=== PATIENT | female | born 1985 | race Caucasian/White ===

== ENCOUNTER → 2017-01-30 | Outpatient (CLI) | payer BC ==
[~2017-01-30] MED LIST: CLC100 PO; FERR325T5 PO; PRENTAB26 PO
[2017-01-30 11:34] LABS: URINE APPEARANCE CLEAR (CLEAR); URINE BILIRUBIN NEG (NEG); URINE COLOR YELLOW; URINE NITRITE NEG (NEG); URINE SPECIFIC GRAVITY 1.012 (1.000-1.030); UROBILINOGEN NEG (NEG)
[2017-01-30 11:46] LABS: MANUAL MICROSCOPIC REQUIRED? NO; REVIEW REQ? NO
== END | disposition home or self-care (01) ==
LOC: C.LABSPEC 10:49
PROVIDERS: ATTEND Obstetrics & Gynecology
DX: Z34.90 Encounter for supervision of normal pregnancy, unspecified, unspecified trimester (principal)

== ENCOUNTER → 2017-02-06 | Outpatient (CLI) | payer BC ==
[2017-02-06 12:32] LABS: BASO % 0.4 %; BASO ABS # 0.04 K/uL (0-0.2); COMPLETE YES; EOS % 0.5 %; HEMATOCRIT 35.5 % (37-47); IG% 0.3 %; LYMPH % 24.5 %; LYMPH ABS # 2.25 K/uL (1.2-3.4); MEAN CELL VOLUME 87.2 fL (80-100); MEAN CORPUSCULAR HEMOGLOBIN 29.7 pg (25-34); MEAN CORPUSCULAR HGB CONC 34.1 g/dl (32-36); MEAN PLATELET VOLUME 10.7 fL (7.4-10.4); MONO % 5.1 %; NEUT % 69.2 %; PLATELET COUNT 265 K/uL (130-400); RED BLOOD COUNT 4.07 M/uL (4.2-5.4); WHITE BLOOD COUNT 9.19 K/uL (4.8-10.8)
[2017-02-08 02:02] LABS: CHLAMYDIA TRACH RNA*** NOT DETECTED (NOT DETECTED); GC (NEIS GONORRHOEAE)RNA** NOT DETECTED (NOT DETECTED)
== END | disposition home or self-care (01) ==
LOC: C.LAB1850 10:01
PROVIDERS: ATTEND Obstetrics & Gynecology
DX: Z34.90 Encounter for supervision of normal pregnancy, unspecified, unspecified trimester (principal)

== ENCOUNTER → 2017-04-02 | Outpatient (CLI) | payer BC ==
[2017-04-02 12:05] LABS: GTGD 50 Grams
[2017-04-03 16:08] LABS: AFP CONCENTRATION 57.6 NG/ML; AFP MULTIPLE OF MEDIAN 1.52; AFPTS GESTATIONAL AGE 16.1 WEEKS; AFPTS INSULIN DEP DIABETIC? NO; AFPTS MATERNAL WT 124 LBS; ALPHA-FETOPROTEIN RACE CAUCASIAN=W; ESTRIOL MULTIPLE OF MEDIAN 1.02; HISTORY OF NTD NO; INHIBIN A 139 PG/ML; INHIBIN A MOM 0.74; REPEAT SAMPLE? NO
== END | disposition home or self-care (01) ==
LOC: C.LAB1850 09:45
PROVIDERS: ATTEND Obstetrics & Gynecology
DX: Z34.90 Encounter for supervision of normal pregnancy, unspecified, unspecified trimester (principal)

== ENCOUNTER → 2017-06-27 | Outpatient (CLI) | payer BC ==
[2017-06-27 12:04] LABS: URINE APPEARANCE CLEAR (CLEAR); URINE BILIRUBIN NEG (NEG); URINE COLOR YELLOW; URINE NITRITE NEG (NEG); URINE PH 7.5 (4.5-7.5); URINE SPECIFIC GRAVITY 1.014 (1.000-1.030); UROBILINOGEN NEG (NEG)
[2017-06-27 12:06] LABS: MANUAL MICROSCOPIC REQUIRED? NO; REVIEW REQ? NO
[2017-06-27 12:10] LABS: HEMATOCRIT 30.8 % (37-47)
[2017-06-27 12:26] LABS: GTGD 50 Grams
== END | disposition home or self-care (01) ==
LOC: C.LAB1850 09:13
PROVIDERS: ATTEND Obstetrics & Gynecology
DX: Z34.82 Encounter for supervision of other normal pregnancy, second trimester (principal); Z3A.00 Weeks of gestation of pregnancy not specified

== ENCOUNTER → 2017-08-20 | Outpatient (CLI) | payer BC | END | disposition home or self-care (01) | LOC: C.LABSPEC 13:51 | PROVIDERS: ATTEND Obstetrics & Gynecology | DX: Z34.83 Encounter for supervision of other normal pregnancy, third trimester (principal) ==

== ENCOUNTER 2017-09-19 14:48 | Inpatient (IN) | payer BC ==
[~2017-09-19] VITALS: Ht 167.6 cm; Wt 66.8 kg
[2017-09-19] MEDS ORDERED: OXYTOCIN 30 UNITS/500ML NSS IV ONE (14:51)
[2017-09-19] MEDS ORDERED: LACTATED RINGER'S 1000ML 1,000 ML IV PRN (15:25)
[2017-09-19] MEDS ORDERED: LACTATED RINGER'S 1000ML 1,000 ML IV SCH (15:25)
[2017-09-19] MEDS ORDERED: HYDROCORTISONE ACETATE 25 MG SUPP PR PRN (15:30)
[2017-09-19] MEDS ORDERED: OXYCODONE/ACETAMINOPHEN 5-325 TAB PO PRN (15:30)
[2017-09-19] MEDS ORDERED: SUPERCREAM 0.870 % 15GM JAR EXT PRN (15:30)
[2017-09-19] MEDS ORDERED: BENZOCAINE 20% AER SPR 82.5 GM CAN EXT PRN (15:30)
[2017-09-19] MEDS ORDERED: LANOLIN OINT EXT PRN (15:30)
[2017-09-19] MEDS ORDERED: ACETAMINOPHEN 325 MG TAB PO PRN (15:30)
[2017-09-19] MEDS ORDERED: OXYTOCIN 30 UNITS/500ML NSS IV PRN (15:30)
--- NOTE | 2017-09-19 15:38 | Vaginal Delivery Summary ---
Vaginal Delivery Summary Upon my arrival I was told the patient was completely dilated. After AROM and 1 push on reexam there was an anterior lip. The heart tones were in the 80s. With the next push attempts made to reduce the lip. The lip did reduce successfully with pushing however the heart tones remained in the 60s. She was readied for vacuum assistance. She was briefly counseled. The heart tones remained in the 60s and therefore the vacuum was applied. The cervix exam was complete/complete/ +2 station. With the first pull of the vacuum the device popped off. The patient pushed spontaneously for the remainder of that contraction. The heart tones remained in the 60s and therefore the vacuum was reapplied. Over one contraction using vacuum assistance the cephalic was delivered. This was followed rapidly by delivery of the shoulders and body. The infant was vigorous and crying at . His mouth and nose were bulb suctioned. Cord was clamped and infant was placed on the maternal abdomen. Cord was then doubly clamped and cut. The placenta was delivered spontaneously and intact 3 vessel cord. Hemostasis achieved with dilute Pitocin and uterine massage. A second-degree perineal laceration was noted and anesthesia was given with 1% lidocaine. The laceration was then repaired in usual fashion using 3-0 Vicryl. The cervix and sulci were intact. Cord blood and cord gases had been obtained. EBL 300 cc's. Mother and baby stable in recovery.
[2017-09-19] MEDS: IBUPROFEN 600 MG TAB PO PRN ×2 (16:02→19:54)
[2017-09-19 16:21] VITALS: Ht 167.6 cm; Wt 66.8 kg
[2017-09-19] MEDS ORDERED: OXYTOCIN INJ 20 UNITS in LACTATED RINGER'S 1000ML 1,000 ML IV SCH (17:00)
[2017-09-19 18:25] VITALS: BP 102/73; PULSE 84; TEMP 36.8
[2017-09-19] MEDS: DOCUSATE SODIUM 100 MG CAP PO SCH (19:53)
[2017-09-19 20:19] VITALS: BP 127/77; PULSE 77; TEMP 36.8
--- NOTE | 2017-09-19 20:38 | Discharge Instructions ---
Discharge Instructions Date of Service Sep 19, 2017. Admission Reason for Admission: R/O Labor Discharge Discharge Diagnosis / Problem: Vaginal Delivery Discharge Goals Goal(s): Routine recovery after delivery Medications Continue Dispensed Medications: supercream, dermaplast, tucks, lansinoh Activity Recommendations Activity Limitations: per Instructions/Follow-up section . Instructions / Follow-Up Instructions / Follow-Up ACTIVITY RECOMMENDATIONS: * Gradual return to full activity over the next 2-3 weeks. * No lifting - nothing heavier than baby over the next 2-3 weeks. * Do not engage in vigorous exercise, sexual activity or sports until cleared by your physician. * Do not drive or operate any motorized equipment until cleared by your physician. * You may shower/bathe daily. MEDICATIONS: For discomfort or pain, you may use Acetaminophen (Tylenol), Ibuprofen (Advil), or Naproxen (Aleve) following the package directions. For constipation you may use Colace following the package directions. BREAST CARE: If you are not breast feeding: * Wear a supportive bra 24 hours a day for one to two weeks. * Avoid stimulating your breasts and nipples as much as possible during the first few weeks after delivery. * When taking a shower, have the warm water hit your back, not breasts. * When your breasts feel full, apply ice packs. Usually three to four times a day helps ease the discomfort. * Take a mild pain medication (Tylenol / Motrin) when you are uncomfortable. If breast feeding: * Use breast milk to lubricate nipples. Lansinoh cream may be used for sore nipples. You do not need to remove cream prior to breast feeding. If using a different brand of cream, check the label for directions regarding removal of cream prior to nursing. * Wear a supportive bra. * If having problems with breasts or breast feeding, call a sales and leasing consultant or your health care provider. EPISIOTOMY CARE: After delivery, if you have an episiotomy (stitches), the following steps will ease discomfort and aid healing. * For the first 24 hours after delivery, place ice packs next to your episiotomy to help reduce swelling. * After the first 24 hour-period, sitz baths, either portable or in the tub, are suggested. A shower with a shower arm sprayed over the episiotomy may be comforting. * Maricruz care should be done after each voiding and bowel movement. Squirt warm water from a plastic bottle over the perineum (region of the body between the anus and urinary opening) and pat dry. * Use Dermoplast to ease discomfort. Shake container. [place] directly over the episiotomy. Place a Tucks on a clean sanitary pad next to your episiotomy. SPECIAL CARE INSTRUCTIONS: When you are discharged from the hospital, it is important for you to follow the instructions listed below: * During the first week at home, you should be able to care for yourself and your baby. In addition, the usual light household activities are encouraged. * Limit your activities to the way you feel. Do not try to clean the house or move furniture. Be sensible. * If you actively engage in sports and have done so up until the time of your delivery, you may resume these activities as soon as you feel able. This may take up to one month or even longer. Use good judgment. * Continue to take your vitamins for at least six weeks after the of your baby. * Your diet need not be limited unless you were on a special diet before your delivery. Breast-feeding mothers need around 2500 calories per day and at least 64-80 ounces of fluid per day (8 to 10 glasses). * You should eat foods from the four major food groups. Crash diets or fad diets are to be avoided. Eating lean meats, fresh fruits and vegetables, low-fat dairy products, high fiber foods and a regular exercise program, will help you get back to your pre- weight without putting your health at risk. * Constipation is sometimes a problem after delivery. Take a mild laxative as needed. If breast feeding, Milk of Magnesia is acceptable to use. You may use a suppository or Fleets enema if no episiotomy. * A daily shower or tub bath is suggested. Be sure to thoroughly and gently dry the perineum. * A bloody vaginal discharge will usually continue until around four weeks post . A small amount of bleeding may continue for as long as six weeks. Vaginal discharge changes from the bright red bleeding after delivery to pink then brownish and finally yellowish-pink before becoming white and disappearing. * Bleeding may increase with activity. Your first period may come in 4-8 weeks. If you are breast feeding, your period may be delayed even longer. * Gustine (sex) can begin whenever both you and your partner feel comfortable and do not have any form of genital infection. It is recommended that you wait at least six weeks for internal and external healing to occur. If you have questions, please talk to your health care practitioner. A condom should be used to prevent infection and . * Foreplay, gentle intercourse and lubrication is very important the first several times to prevent pain. A water-based lubricant such as K-Y jelly or Astroglide may be used. * If you have RH negative blood and your baby is RH positive, you will receive RHOGAM by injection prior to discharge. The nurse will give you a card to keep with you that has the date and place that you received RHOGAM after delivery. * During your care, you had a Rubella screen done to check for the presence of rubella antibodies in your blood. If your test was negative, you will receive a Rubella vaccine prior to discharge. This vaccine may cause a fever, soreness at the injection site and flu-like symptoms. If these symptoms persist, notify your health care practitioner. is not advised for one month after a Rubella vaccine. * Verbalizes understanding of car seat law as reviewed with patient nursing. * Car Seat hand-out given and reviewed with patient by nursing. * Shaken baby information reviewed with patient by nursing. Call you doctor if: * Heavy bleeding (saturating several pads an hour) or passing clots the size of your fist. * A fever >101 degrees F (38.3 degrees C) on two occasions four hours apart and /or chills. * Unusual pain in the pelvic or vaginal areas. * "Baby Blues" lasting longer than two weeks. If you have any questions or concerns, call your health care practitioner at . FOLLOW UP VISIT: * Please call the office at to schedule a 6 week examination. It is important you keep this appointment. It is important for you to make arrangements for either yearly or twice yearly check-ups thereafter. Current Hospital Diet Patient's current hospital diet: Regular OB Diet Discharge Diet Recommended Diet: Regular Diet Pending Studies Studies pending at discharge: no Medical Emergencies . Who to Call and When: Medical Emergencies: If at any time you feel your situation is an emergency, please call [phone] immediately. . Non-Emergent Contact Non-Emergency issues call your: Primary Care Provider . . "Provider Documentation" section prepared by Georgina Beebe. . VTE Core Measure Inpt VTE Proph given/why not?: Treatment not indicated
[2017-09-19 23:40] VITALS: BP 130/71; PULSE 75; TEMP 36.9
[2017-09-20 04:15] VITALS: BP 115/71; PULSE 71; TEMP 36.5
[2017-09-20] MEDS: IBUPROFEN 600 MG TAB PO PRN ×3 (04:29→13:20)
--- NOTE | 2017-09-20 06:24 | Progress Note ---
Subjective Sep 20, 2017. Subjective conversation w/ patient (Patient seen and examined at bedside) Ambulation: ambulating normally Voiding: no voiding problems Diet Tolerance: Regular Diet Lochia: Moderate Feeding Type: Breast Feeding Pain: 7/10 cramping pain with , well controlled w/analgesia Review of Systems Constitutional: No fever, No chills, No sweats Respiratory: No cough, No shortness of breath Cardiac: No chest pain, No edema Abdomen: No pain, No nausea, No vomiting Female : No dysuria Objective Vital Signs Date Time Temp Pulse Resp B/P (MAP) Pulse Ox O2 Delivery O2 Flow Rate FiO2 09/20/17 04:15 36.5 71 18 115/71 (86) Room Air 09/19/17 23:40 Room Air 09/19/17 23:40 36.9 75 18 130/71 (90) Room Air 09/19/17 20:19 36.8 77 18 127/77 (94) Room Air 09/19/17 18:25 36.8 84 16 102/73 (83) Room Air 09/19/17 18:25 Room Air Physical Exam General Appearance: WELL-APPEARING, WD/WN, NO APPARENT DISTRESS Respiratory/Chest: chest non-tender, lungs clear, normal breath sounds, no respiratory distress, no accessory muscle use Cardiovascular: regular rate, rhythm, no edema, no gallop, no murmur Abdomen: normal bowel sounds, non tender, soft Fundus: Firm, Non-Tender, Relation to Umbilicus (at u) Extremities: normal inspection, no pedal edema, no calf tenderness Laboratory Results Last 24 Hours Test 09/20/17 04:44 Medications Current Inpatient Medications Medications (Trade) Dose Ordered Sig/Ashly Route Start Time Stop Time Status Last Admin Dose Admin Oxytocin (Pitocin IV) 30 units UD PRN IV 09/19/17 15:30 10/19/17 15:29 Benzocaine (Dermoplast Aero Spr) 1 appln PRN PRN EXT 09/19/17 15:30 10/19/17 15:29 09/19/17 18:30 1 APPLN Cocaine HCl (Supercream 0.870% Cr) BID PRN EXT 09/19/17 15:30 10/03/17 15:29 Hydrocortisone Acetate (Anusol Hc Supp) 25 mg BID PRN MS 09/19/17 15:30 10/19/17 15:29 Lanolin (Lanolin Oint) PRN PRN EXT 09/19/17 15:30 10/19/17 15:29 Ibuprofen (Motrin Tab) 600 mg Q4H PRN PO 09/19/17 15:30 10/19/17 15:29 09/20/17 04:29 600 MG Acetaminophen (Tylenol Tab) 650 mg Q6H PRN PO 09/19/17 15:30 10/19/17 15:29 Oxycodone/ Acetaminophen (Percocet 5-325mg Tab) 1 tab Q4H PRN PO 09/19/17 15:30 10/03/17 15:29 Docusate Sodium (coLACE CAP) 100 mg BID PO 09/19/17 20:00 10/19/17 19:59 09/19/17 19:53 100 MG Diphtheria/ Pertussis/Tetanus Vacc (Adacel Inj) 0.5 ml ONCE ONCE IM. 09/20/17 09:00 09/20/17 09:01 Oxytocin 20 units/ Lactated Ringer's 1,002 ml @ 125 mls/hr Q8H1M IV 09/19/17 17:00 09/20/17 09:01 09/19/17 17:13 125 MLS/HR Assessment and Plan Post- Day#: 1 Continue Routine Care: 31 year old s/p vaginal delivery w/vacuum assistance due to bradycardia day 1 - pt doing well clinically - O-, GBS -ve and rubella immune - will check baby's blood type to assess if pt needs Rhogam injection - vitals reviewed and wnl - continue to encourage ambulation and - motrin prn for pain - will review CBC prior to d/c - d/c instructions reviewed as pt ready for d/c later today Georgina Beebe, PGY1 Resident Physician Supervision Note: I was present with Dr. Beebe during the history and exam. I discussed the case with the resident and agree with the findings and plan as documented in the note. Any exceptions or clarifications are listed here: doing well, ff 2 down, ready for discharge today, has cbc pending. baby is rh neg, no rhogam indicated. f/u 6 wks. instructions reviewed. Documented By: Mariya Barraza Resident Tracking Resident Involvement: Resident Care Provided Care Provided: OB Delivery
[2017-09-20 07:10] VITALS: BP 112/72; TEMP 36.8; O2SAT 98
[2017-09-20 07:50] LABS: HEMATOCRIT 36.2 % (37-47); HEMOGLOBIN 12.6 g/dL (12.0-16.0); MEAN CELL VOLUME 89.6 fL (80-100); MEAN CORPUSCULAR HEMOGLOBIN 31.2 pg (25-34); MEAN CORPUSCULAR HGB CONC 34.8 g/dl (32-36); MEAN PLATELET VOLUME 11.3 fL (7.4-10.4); PLATELET COUNT 168 K/uL (130-400); RED CELL DISTRIBUTION WIDTH CV 14.6 % (11.5-14.5); WHITE BLOOD COUNT 9.83 K/uL (4.8-10.8)
[2017-09-20] MEDS: DOCUSATE SODIUM 100 MG CAP PO SCH (07:52)
[2017-09-20] MEDS ORDERED: DIPHTHERIA/TETANUS/PERTUSSIS 0.5 ML SYR/VIAL IM. ONE (09:00)
[2017-09-20 11:05] VITALS: BP 119/78; PULSE 82; TEMP 36.6; O2SAT 99
[2017-09-20 16:15] VITALS: BP 117/74; PULSE 77; TEMP 36.6
[2017-09-20 17:15] VITALS: BP_DIAS 74; PULSE 77; TEMP 36.6
== END 2017-09-20 17:15 | disposition home or self-care (01) | DRG 775 ==
LOC: C.LD 14:48 → C.OPB 14:48 → C.LD 15:28 → C.OPB 15:28 → C.OBG 18:25
PROVIDERS: ADMIT Obstetrics & Gynecology; ATTEND Obstetrics & Gynecology
PROC: 10D07Z6 Extraction of Products of Conception, Vacuum, Via Natural or Artificial Opening (ICD-10-PCS; principal; 2017-09-19)
PROC: 0KQM0ZZ Repair Perineum Muscle, Open Approach (ICD-10-PCS; principal; 2017-09-19)
DX: O70.1 Second degree perineal laceration during delivery (principal); O76 Abnormality in fetal heart rate and rhythm complicating labor and delivery; Z37.0 Single live birth

== ENCOUNTER → 2017-11-04 | Outpatient (CLI) | payer BC | END | disposition home or self-care (01) | LOC: C.PAPS 18:14 | PROVIDERS: ATTEND Obstetrics & Gynecology | DX: Z01.419 Encounter for gynecological examination (general) (routine) without abnormal findings (principal) ==